=== PATIENT | male | born 1990 | race Caucasian/White ===

== ENCOUNTER 2018-01-09 16:26 | Emergency (ER) | payer SELFPAY ==
[2018-01-09] MEDS ORDERED: Ketorolac 60 MG/2 ML SDV IM ONE (16:55)
[2018-01-09] MEDS ORDERED: Amoxicillin/Clavulanate K 875-125 MG Tab PO ONE (16:56)
--- NOTE | 2018-01-09 16:58 | EDM.PDOC ---
ED HPI GENERAL MEDICAL PROBLEM - General Stated Complaint: TOOTHACHE Time Seen by Provider: 01/09/18 16:26 Source of Information: Reports: Patient, Family History Limitations: Reports: No Limitations - History of Present Illness INITIAL COMMENTS - FREE TEXT/NARRATIVE: 27 y.o.w.m came with his SO to the ed due to toothache for some time. Pt is from [place]. He smokes daily one pack of cigarets and drinks one bottle of whisky per week. He has no money to by pain meds, clean his teeth and see a dentist. He lives currently in a motel and wants to go back to [place]. No F/C/N/V or any other acute medical issues. 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 Pain Score (Numeric/FACES): 3 - Related Data Allergies Allergy/AdvReac Type Severity Reaction Status Date / Time No Known Allergies Allergy Verified 01/09/18 16:58 Home Meds: Home Meds Amoxicillin/Potassium Clav [Augmentin 875-125 Tablet] 1 each PO BID #20 tablet 01/09/18 [Rx] traMADol [Ultram] 50 mg PO Q6H PRN #16 tab 01/09/18 [Rx] ED ROS ENT - Review of Systems Review Of Systems: See Below Constitutional: Reports: No Symptoms HEENT: Reports: Dental Pain Respiratory: Reports: No Symptoms Cardiovascular: Reports: No Symptoms Endocrine: Reports: No Symptoms GI/Abdominal: Reports: No Symptoms : Reports: No Symptoms Musculoskeletal: Reports: No Symptoms Skin: Reports: No Symptoms Neurological: Reports: No Symptoms Psychiatric: Reports: No Symptoms Hematologic/Lymphatic: Reports: No Symptoms Immunologic: Reports: No Symptoms ED EXAM, ENT - Physical Exam Exam: See Below Exam Limited By: No Limitations General Appearance: Alert, WD/WN, No Apparent Distress, Thin Eye Exam: Bilateral Eye: Normal Inspection Ears: Normal External Exam Nose: Normal Inspection, Normal Mucousa Mouth/Throat: Dental Pain, Dental Tenderness, Dental Trauma, Dry Mucous Membrane , Other (gingivitis, poor dental care with deceyed teeth and missing teeth.) Head: Atraumatic, Normocephalic Neck: Normal Inspection, Supple, Non-Tender, Full Range of Motion Respiratory/Chest: No Respiratory Distress, Lungs Clear Cardiovascular: Normal Peripheral Pulses, Regular Rate, Rhythm, No Edema GI/Abdominal: Normal Bowel Sounds (Male) Exam: Deferred Rectal (Males) Exam: Deferred Back: Normal Inspection, Full Range of Motion Extremities: Normal Inspection, Normal Range of Motion, Non-Tender, No Pedal Edema Neurological: Alert, Oriented, CN II-XII Intact, Normal Cognition Psychiatric: Normal Affect, Normal Mood Skin: Warm, Dry, Intact, Normal Color Lymphatic: No Adenopathy Course - Vital Signs Text/Narrative:: 27 y.o.w.m came with his SO to the ed due to toothache for some time. Pt is from [place]. He smokes daily one pack of cigarets and drinks one bottle of whisky per week. He has no money to by pain [facility], clean his teeth and see a dentist. He lives currently in a motel and wants to go back to [place]. No F/C/N/V or any other acute medical issues. BP 130/76 RR 18 Pulse ox 98 on RA, temp 36.8 PE: Poor dentition with gingivitis Impression: Poor dentition with gingivities, decay of teeth Tx: Toradol, Abx Reexam: Improved Plan: D/C with instructions Last Recorded V/S: Last Vital Signs Temp 36.8 C 01/09/18 16:30 Pulse 80 01/09/18 17:20 Resp 18 01/09/18 17:20 BP 117/71 01/09/18 17:20 Pulse Ox 98 01/09/18 17:20 - Orders/Labs/Meds Meds: Medications Discontinued Medications Generic Name Dose Route Start Last Admin Trade Name Lowellq PRN Reason Stop Dose Admin Amoxicillin/Clavulanate Potassium 1 tab 01/09/18 16:56 01/09/18 17:04 Augmentin 875 Mg/125 Mg PO 01/09/18 16:57 1 tab ONETIME ONE Administration Ketorolac Tromethamine 60 mg 01/09/18 16:55 01/09/18 17:03 Toradol IM 01/09/18 16:56 60 mg ONETIME ONE Administration Ondansetron HCl 8 mg 01/09/18 17:00 01/09/18 17:04 Zofran Odt PO 01/09/18 17:01 8 mg ONETIME ONE Administration Departure - Departure Time of Disposition: 16:58 Disposition: Home, Self-Care 01 Condition: Good Clinical Impression: Gingivitis, Decay, teeth - Discharge Information Prescriptions: Amoxicillin/Potassium Clav [Augmentin 875-125 Tablet] 1 each PO BID #20 tablet traMADol [Ultram] 50 mg PO Q6H PRN #16 tab PRN Reason: for severe pain only Instructions: Gingivitis Referrals: PCP,None [Primary Care Provider] - Forms: ED Department Discharge Additional Instructions: Please apply mouth hygiene, please quit ETOH and Tobacco use, please take Abx as recommended, please take Motrin for mod pain, Ultram for severe pain. Please f/u with a dentist as soon as possible. Please come back if your symptoms get worse acutely.
[2018-01-09] MEDS ORDERED: Ondansetron 8 MG Tab.DIS PO ONE (17:00)
== END 2018-01-09 17:20 | disposition home or self-care (01) ==
LOC: FB.ED 16:26
DX: K05.10 Chronic gingivitis, plaque induced (principal); K02.9 Dental caries, unspecified; Z79.899 Other long term (current) drug therapy
CPT/HCPCS: 96372; 99282; A9270-GY; J1885